=== PATIENT | male | born 1950 | race Caucasian/White ===

== ENCOUNTER 2020-03-15 09:04 | Outpatient (REF) | payer MEDICARE, SELFPAY | END 2020-03-15 09:05 | disposition home or self-care (01) | LOC: HO.BBR 09:04 | PROVIDERS: PCP Internal Medicine; Visit Provider Internal Medicine | DX: E83.110 Hereditary hemochromatosis (principal) | CPT/HCPCS: 99195 ==

== ENCOUNTER 2020-05-17 08:09 | Outpatient (REF) | payer MEDICARE, SELFPAY | END 2020-05-17 08:10 | disposition home or self-care (01) | LOC: HO.BBR 08:09 | PROVIDERS: Visit Provider Internal Medicine | DX: Z13.89 Encounter for screening for other disorder (principal) ==

== ENCOUNTER 2020-05-17 08:36 | Outpatient (REF) | payer SELFPAY ==
[2020-05-17 09:53] LABS: Cholesterol 137 mg/dL
== END 2020-05-17 08:37 | disposition home or self-care (01) ==
LOC: HO.LNC 08:36
PROVIDERS: Visit Provider Pathology Anatomic Pathology & Clinical Pathology
DX: Z76.89 Persons encountering health services in other specified circumstances (principal)
CPT/HCPCS: 82465

== ENCOUNTER 2020-07-19 08:59 | Outpatient (REF) | payer MEDICARE, SELFPAY | END 2020-07-19 09:00 | disposition home or self-care (01) | LOC: HO.BBR 08:59 | PROVIDERS: Visit Provider Internal Medicine | DX: Z13.89 Encounter for screening for other disorder (principal) ==

== ENCOUNTER 2020-08-12 15:39 | Outpatient (REF) | payer MEDICARE, SELFPAY ==
--- NOTE | ~2020-08-12 | US_ITS ---
EXAMINATION: US RETROPERITONEAL COMPLETE (RENAL) CLINICAL INFORMATION: Urinary retention. COMPARISON: None. TECHNIQUE: Real-time imaging of the kidneys and bladder. FINDINGS: RIGHT KIDNEY: 11.5 x 7.1 x 5.3 cm (SAG x AP x TRV). The kidney is normal in size, contour, and echogenicity. Renal cortical thickness is normal. No calculi or focal parenchymal lesions. No hydronephrosis. LEFT KIDNEY: 12.2 x 6.0 x 4.5 cm (SAG x AP x TRV). The kidney is normal in size, contour, and echogenicity. Renal cortical thickness is normal. No calculi or focal parenchymal lesions. No hydronephrosis. BLADDER: Well distended and normal. Bilateral ureteral jets are demonstrated. Prevoid bladder volume is 222 mL. Postvoid bladder volume is 41 mL. Prostate volume 46.3 mL. US/US retroperitoneal comp IMPRESSION: Unremarkable renal ultrasound. Small postvoid residual bladder volume. Moderate prostate enlargement.
== END 2020-08-12 15:40 | disposition home or self-care (01) ==
LOC: HO.US 15:39
PROVIDERS: Visit Provider Urology
DX: R33.9 Retention of urine, unspecified (principal)
CPT/HCPCS: 76770

== ENCOUNTER 2020-09-13 08:38 | Outpatient (REF) | payer MEDICARE, SELFPAY | END 2020-09-13 08:39 | disposition home or self-care (01) | LOC: HO.BBR 08:38 | PROVIDERS: Visit Provider Internal Medicine | DX: Z13.89 Encounter for screening for other disorder (principal) ==

== ENCOUNTER 2020-11-08 08:55 | Outpatient (REF) | payer MEDICARE, SELFPAY | END 2020-11-08 08:56 | disposition home or self-care (01) | LOC: HO.BBR 08:55 | PROVIDERS: Visit Provider Internal Medicine | DX: Z13.89 Encounter for screening for other disorder (principal) ==

== ENCOUNTER 2021-01-03 09:20 | Outpatient (REF) | payer MEDICARE, SELFPAY | END 2021-01-03 09:21 | disposition home or self-care (01) | LOC: HO.BBR 09:20 | PROVIDERS: Visit Provider Internal Medicine | DX: Z13.89 Encounter for screening for other disorder (principal) ==

== ENCOUNTER → 2021-03-26 15:42 | Outpatient (BNVA) | payer MEDICARE, SELFPAY | PROVIDERS: PCP Internal Medicine; Visit Provider Urology | DX: N40.1 Benign prostatic hyperplasia with lower urinary tract symptoms (principal); N13.8 Other obstructive and reflux uropathy; R97.20 Elevated prostate specific antigen [PSA] | CPT/HCPCS: Q3014 ==

== ENCOUNTER 2021-07-30 13:08 | Outpatient (REF) | payer MEDICARE, SELFPAY | END 2021-07-30 13:09 | disposition home or self-care (01) | LOC: HO.BBR 13:08 | PROVIDERS: Visit Provider Nurse Practitioner | DX: Z13.89 Encounter for screening for other disorder (principal) ==

== ENCOUNTER 2021-10-03 09:23 | Outpatient (REF) | payer MEDICARE, SELFPAY | END 2021-10-03 09:24 | disposition home or self-care (01) | LOC: HO.BBR 09:23 | PROVIDERS: Visit Provider Nurse Practitioner | DX: Z13.89 Encounter for screening for other disorder (principal) ==

== ENCOUNTER 2021-11-28 08:59 | Outpatient (REF) | payer MEDICARE, SELFPAY | END 2021-11-28 09:00 | disposition home or self-care (01) | LOC: HO.BBR 08:59 | PROVIDERS: Visit Provider Nurse Practitioner | DX: Z13.89 Encounter for screening for other disorder (principal) ==

== ENCOUNTER 2022-03-02 08:47 | Outpatient (REF) | payer MEDICARE, SELFPAY | END 2022-03-02 08:48 | disposition home or self-care (01) | LOC: HO.BBR 08:47 | PROVIDERS: Visit Provider Internal Medicine Gastroenterology | DX: Z13.89 Encounter for screening for other disorder (principal) ==

== ENCOUNTER → 2022-03-27 11:28 | Outpatient (BNVA) | payer MEDICARE, SELFPAY | PROVIDERS: PCP Internal Medicine; Visit Provider Urology | DX: N40.1 Benign prostatic hyperplasia with lower urinary tract symptoms (principal); N13.8 Other obstructive and reflux uropathy; R97.20 Elevated prostate specific antigen [PSA]; N52.9 Male erectile dysfunction, unspecified | CPT/HCPCS: 51798; 99212 ==

== ENCOUNTER 2022-06-02 08:07 | Outpatient (REF) | payer MEDICARE, SELFPAY | END 2022-06-02 08:08 | disposition home or self-care (01) | LOC: HO.BBR 08:07 | PROVIDERS: PCP Internal Medicine; Visit Provider Internal Medicine Gastroenterology | DX: Z13.89 Encounter for screening for other disorder (principal) ==

== ENCOUNTER → 2022-06-24 15:00 | Outpatient (BNVA) | payer MEDICARE, SELFPAY | PROVIDERS: PCP Internal Medicine; Visit Provider Urology | DX: E11.69 Type 2 diabetes mellitus with other specified complication (principal); N52.1 Erectile dysfunction due to diseases classified elsewhere; N40.1 Benign prostatic hyperplasia with lower urinary tract symptoms; N13.8 Other obstructive and reflux uropathy | CPT/HCPCS: Q3014 ==

== ENCOUNTER 2022-09-04 08:58 | Outpatient (REF) | payer MEDICARE, SELFPAY | END 2022-09-04 08:59 | disposition home or self-care (01) | LOC: HO.BBR 08:58 | PROVIDERS: Visit Provider Internal Medicine Gastroenterology | DX: Z13.89 Encounter for screening for other disorder (principal) ==

== ENCOUNTER → 2022-09-23 13:18 | Outpatient (BNVA) | payer MEDICARE, SELFPAY | PROVIDERS: PCP Internal Medicine; Visit Provider Urology | DX: R97.20 Elevated prostate specific antigen [PSA] (principal); N40.1 Benign prostatic hyperplasia with lower urinary tract symptoms; N13.8 Other obstructive and reflux uropathy; E11.69 Type 2 diabetes mellitus with other specified complication; N52.1 Erectile dysfunction due to diseases classified elsewhere | CPT/HCPCS: Q3014 ==

== ENCOUNTER 2022-12-08 09:10 | Outpatient (REF) | payer MEDICARE, SELFPAY | END 2022-12-08 09:11 | disposition home or self-care (01) | LOC: HO.BBR 09:10 | PROVIDERS: Visit Provider Internal Medicine Gastroenterology | DX: Z13.89 Encounter for screening for other disorder (principal) ==

== ENCOUNTER 2023-03-09 09:58 | Outpatient (REF) | payer MEDICARE, SELFPAY | END 2023-03-09 09:59 | disposition home or self-care (01) | LOC: HO.BBR 09:58 | PROVIDERS: PCP Internal Medicine; Visit Provider Internal Medicine Gastroenterology | DX: Z13.89 Encounter for screening for other disorder (principal) ==

== ENCOUNTER 2023-06-09 08:34 | Outpatient (REF) | payer MEDICARE, SELFPAY | END 2023-06-09 08:35 | disposition home or self-care (01) | LOC: HO.BBR 08:34 | PROVIDERS: PCP Internal Medicine; Visit Provider Internal Medicine Gastroenterology | DX: Z13.89 Encounter for screening for other disorder (principal) ==

== ENCOUNTER 2023-06-16 15:38 | Outpatient (AMB) | payer MEDICARE, SELFPAY ==
--- NOTE | 2023-06-16 15:50 | A.OFFVIS_ITS ---
Intake Intake Visit Reasons: 6M PVR/PSA(set) Intake Note: Patient presents today for a follow up with PVR medications : Allopurinol, Dutasteride,, Tadalafil Allergies to antibiotics: none Blood thinners: none Allergies No Known Allergies Allergy (Mild, Verified 06/16/23 16:04) NONE Medication List - Last Reconciled 06/16/23 by Larry Polo MD allopurinol 300 mg PO DAILY atorvastatin 10 mg PO DAILY dutasteride 0.5 mg PO DAILY 90 days indomethacin 25 mg PO DAILY lisinopril 20 mg PO DAILY metformin ER 2,000 mg PO DAILY sildenafil 100 mg PO ONCE PRN 30 days tadalafil 10 mg PO DAILY 90 days terazosin 5 mg PO BEDTIME 30 days HPI HPI Comments History of Present Illness Details ?Mr Valencia is a very pleasant male. He is a patient of Dr Felipe. He is seen for the following urologic conditions. - lower urinary tract symptoms - elevated PSA - erectile dysfunction Single therapy dutasteride Effective urinary patterns Will continue with daily tadalafil which has helped stabilize his bladder Add on demand sildenafil Prescriptions provided 6 month follow-up PSA Erectile dysfunction Current medication tadalafil 10 mg daily Has been somewhat effective Prior medications sildenafil on demand Lower Urinary Tract Symptoms: ?Understands there is potential during interval time frame. ? Current visit is for?further evaluation of, lower urinary tract symptoms, predominate obstructive symptoms .? Current treatment includes?medication dutasteride. ? Prostate Symptom Score?Moderate (9-19), Bother 3.? Symptoms include?incomplete emptying, urgency, weak stream, nocturia (>2), and are stable - Imaging 08/18 US PV 44, PVR 45cc ? Prior Prostate Score?unknown.? PSA?02/10 1.7, 02/11 2.1, 12/15 2.1, 01/16 4.0, 01/17 1.3, 08/18 1.4, 03/21 1.1, 06/23 1.3 ? Testing at next visit will include?Prostate Symptom Score ? Treatment plan?continue with current medications.? Office Procedures Post Void Residual Post Residual Void Post Void Residual (PVR): [id number] Void Residual by ultrasound Assessment & Plan Assessment & Plan (1) Erectile dysfunction associated with type 2 diabetes mellitus: Code(s): E11.69 - Type 2 diabetes mellitus with other specified complication; N52.1 - Erectile dysfunction due to diseases classified elsewhere (2) Elevated PSA: Code(s): R97.20 - Elevated prostate specific antigen [PSA] (3) BPH w urinary obs/LUTS: Code(s): N40.1 - Benign prostatic hyperplasia with lower urinary tract symptoms; N13.8 - Other obstructive and reflux uropathy Plan Six-month follow-up PSA Orders: Orders AMB Post Void Residual by ultrasound 06/16/23 R33.9 - Retention of urine, unspecified Prostate Specific Antigen 6 Months R97.20 - Elevated prostate specific antigen [PSA] Medications: Discontinued terazosin Discontinued Reason: Patient Completed Course 5 mg PO BEDTIME 30 days 90 caps 3RF sildenafil administer 60 minutes before intended activity Discontinued Reason: Patient Completed Course 100 mg PO ONCE 30 days PRN 30 tabs 1RF sexual activity N52.9 - Male erectile dysfunction, unspecified Patient Instructions: Imaging studies, laboratory and physical exam results were discussed and reviewed in detail. No major barriers to patient understanding were identified. An opportunity to ask questions regarding the treatment plan was provided. All questions were answered. The patient expressed understanding and agreement with the above treatment plan. The patient is aware they should contact our office by phone for worsening of their current condition or the appearance of new urologic symptoms. Compliance is encouraged with any medications and followup testing that is ordered. It is a privilege to participate in the urologic care of your patient. If you have any questions or concerns regarding treatment for the above conditions, or other urologic issues, please do not hesitate to contact me. The office telepho ne contact is [phone]. This note is constructed using voice recognition software. While every effort has been made to ensure accuracy orthopedic shoe maker errors may have been included. Yours sincerely, Dr Larry Polo MD, RAÚL [facility] - Urology Providers of Expert, Compassionate Care for the Genitourinary System Coding Level of Care Code Est Pt Level 4 (16768) Diagnoses Erectile dysfunction associated with type 2 diabetes mellitus E11.69; N52.1 Elevated PSA R97.20 BPH w urinary obs/LUTS N40.1; N13.8 CPT Codes Post Residual Void - PVR CPT Code: 80103-[id number] Void Residual by ultrasound ([id number])
== END 2023-06-16 16:30 | disposition home or self-care (01) ==
PROVIDERS: Visit Provider Urology
DX: E11.69 Type 2 diabetes mellitus with other specified complication (principal); N52.1 Erectile dysfunction due to diseases classified elsewhere; R97.20 Elevated prostate specific antigen [PSA]; N40.1 Benign prostatic hyperplasia with lower urinary tract symptoms; N13.8 Other obstructive and reflux uropathy
CPT/HCPCS: 99214

== ENCOUNTER → 2023-06-16 15:38 | Outpatient (BNVA) | payer MEDICARE, SELFPAY | PROVIDERS: Visit Provider Urology | DX: E11.69 Type 2 diabetes mellitus with other specified complication (principal); N52.1 Erectile dysfunction due to diseases classified elsewhere; R97.20 Elevated prostate specific antigen [PSA]; N40.1 Benign prostatic hyperplasia with lower urinary tract symptoms; N13.8 Other obstructive and reflux uropathy; R33.8 Other retention of urine | CPT/HCPCS: 51798; 99212 ==

== ENCOUNTER 2023-09-21 09:17 | Outpatient (REF) | payer MEDICARE, SELFPAY | END 2023-09-21 09:18 | disposition home or self-care (01) | LOC: HO.BBR 09:17 | PROVIDERS: PCP Internal Medicine; Visit Provider Internal Medicine Gastroenterology | DX: Z13.89 Encounter for screening for other disorder (principal) ==

== ENCOUNTER 2023-12-21 15:04 | Outpatient (AMB) | payer MEDICARE, SELFPAY ==
--- NOTE | 2023-12-21 15:05 | A.OFFVIS_ITS ---
Intake Visit Reasons: 6M PSA(set) Intake Note: Patient is Present for Telephone Follow Up PSA Urology Med: Dutasteride,Tadalafil Antibiotic Allergy:None Blood Thinner:None Outsole Scheduler Required: No Allergies No Known Allergies Allergy (Mild, Verified 12/21/23 15:07) NONE HPI Comments Details: ?Mr Valencia is a very pleasant male. He is a patient of Dr Felipe. He is seen for the following urologic conditions. - lower urinary tract symptoms - elevated PSA - erectile dysfunction Telemedicine Evaluation 15 min Consultation [facility] Video attempted Six-month follow-up PSA - 1.1 Single therapy dutasteride Effective urinary patterns Will continue with daily tadalafil which has helped stabilize his bladder On demand sildenafil Prescriptions provided Erectile dysfunction Current medication tadalafil 10 mg daily Has been somewhat effective Prior medications sildenafil on demand Lower Urinary Tract Symptoms: ?Understands there is potential during interval time frame. ? Current visit is for?further evaluation of, lower urinary tract symptoms, predominate obstructive symptoms .? Current treatment includes?medication dutasteride - M/W/F ? Prostate Symptom Score?Moderate (9-19), Bother 3.? Symptoms include?incomplete emptying, urgency, weak stream, nocturia (>2), and are stable - Imaging 08/18 US PV 44, PVR 45cc ? Prior Prostate Score?unknown.? PSA?02/10 1.7, 02/11 2.1, 12/15 2.1, 01/16 4.0, 01/17 1.3, 08/18 1.4, 03/21 1.1, 06/23 1.3, 11/21 1.1 ? Testing at next visit will include?Prostate Symptom Score ? Treatment plan?continue with current medications.? Review of Systems Const All systems reviewed & are unremarkable except as noted in HPI and below Reports no additional complaints Resp Reports no additional complaints GI Reports no additional complaints Reports as per HPI Musc Reports no additional complaints Physical Exam Telemedicine evaluation Appropriate responses Regular breathing rate and rhythm HEENT Head: Yes normal to inspection Ears: hearing grossly normal bilaterally Eyes General: appearance normal, both eyes and all related structures Neck Neck: Yes normal visual inspection Chest Chest palpation & inspection: normal inspection of the chest Resp Effort & Inspection: normal respiratory effort and able to speak in complete sentences Telehealth Telehealth Location of provider rendering services: practice address Location of patient: address on file Patient Identification confirmed using: Name, : Yes Telehealth method: video Patient verbally consented to treatment: Yes Patient verbally consented to billing insurance company: Yes Patient informed of any privacy concerns related to visit: Yes Assessment & Plan Assessment & Plan (1) Erectile dysfunction associated with type 2 diabetes mellitus: Code(s): E11.69 - Type 2 diabetes mellitus with other specified complication; N52.1 - Erectile dysfunction due to diseases classified elsewhere Category: Medical (2) BPH w urinary obs/LUTS: Code(s): N40.1 - Benign prostatic hyperplasia with lower urinary tract symptoms; N13.8 - Other obstructive and reflux uropathy Category: Medical Plan Six-month follow-up office Patient Instructions: Imaging studies, laboratory and physical exam results were discussed and reviewed in detail. No major barriers to patient understanding were identified. An opportunity to ask questions regarding the treatment plan was provided. All questions were answered. The patient expressed understanding and agreement with the above treatment plan. The patient is aware they should contact our office by phone for worsening of their current condition or the appearance of new urologic symptoms. Compliance is encouraged with any medications and followup testing that is ordered. It is a privilege to participate in the urologic care of your patient. If you have any questions or concerns regarding treatment for the above conditions, or other urologic issues, please do not hesitate to contact me. The office telephone contact is [phone]. This note is constructed using voice recognition software. While every effort has been made to ensure accuracy track production engineer errors may have been included. Yours sincerely, Dr Larry Polo MD, RAÚ[facility] - Urology Providers of Expert, Compassionate Care for the Genitourinary System Coding Level of Care Code Tele Est Pt Level 3 (89936) Diagnoses Erectile dysfunction associated with type 2 diabetes mellitus E11.69; N52.1 BPH w urinary obs/LUTS N40.1; N13.8
--- OUTSIDE RECORDS SUMMARY | 2023-12-21 15:06 | XMS_ITS | Continuity of Care Document ---
Author Organization [facility] [place] [address] [place] [address]- Care Team Providers Care Rd Project Manager Name Role Phone Vimal Gagnon MD Primary Care Physician Encounter 01/22/21 - 01/29/21 [facility] [address], [address] [place], [place] [address] Attending Physician: Vimal Gagnon MD Admitting Physician: Vimal Gagnon MD Referring Physician: Vimal Gagnon MD Allergies, Adverse Reactions, Alerts Substance Reaction Severity Status NKA Active Medications acetaminophen 325 mg oral tablet 650 mg, By Mouth, Every 6 hours, Refills 0, Maintenance, 03/29/19 12:11:09 EDT Start Date: 03/29/19 Status: Ordered Aspirin Tablet 325 mg, By Mouth, 2 times a day, Refills 0, Maintenance, 03/29/19 12:12:20 EDT Start Date: 03/29/19 Status: Ordered atorvastatin 10 mg oral tablet = 10 mg, By Mouth, Daily, 0 Refills, Maintenance, 03/29/19 12:11:19 EDT, Tablet Start Date: 03/29/19 Status: Ordered Colchicine = 0.6 mg, By Mouth, Daily, 0 Refills, Maintenance, 03/28/19 7:49:48 EDT Start Date: 03/28/19 Status: Ordered docusate sodium 100 mg oral capsule 100 mg, 1, capsule, By Mouth, 2 times a day, Refills 0, Maintenance, 03/29/19 12:11:26 EDT Start Date: 03/29/19 Status: Ordered metFORMIN 500 mg oral tablet 1 tablet = 500 mg, By Mouth, 4 times a day, 0 Refills, Maintenance, 03/28/19 7:49:08 EDT Start Date: 03/28/19 Status: Ordered Milk of Magnesia Liquid 30 mL, By Mouth, Daily, PRN Constipation, 0 Refills, Maintenance, 03/29/19 12:11:31 EDT, Suspension Start Date: 03/29/19 Status: Ordered MiraLax Powder 1 pack/packet = 17 Gm, By Mouth, Daily, 0 Refills, Maintenance, 03/29/19 12:11:36 EDT, Powder Start Date: 03/29/19 Status: Ordered pantoprazole 40 mg oral delayed release tablet = 40 mg, By Mouth, Daily, 0 Refills, Maintenance, 03/29/19 12:11:35 EDT, EC Tablet Start Date: 03/29/19 Status: Ordered senna 187 mg oral tablet 1 tablet = 8.6 mg, By Mouth, Daily at bedtime, 0 Refills, Maintenance, 03/29/19 12:11:40 EDT, Tablet Start Date: 03/29/19 Status: Ordered Terazosin 5 mg, By Mouth, Daily at bedtime, Refills 0, Maintenance, 03/28/19 7:50:28 EDT Start Date: 03/28/19 Status: Ordered tiZANidine 4 mg oral tablet 4 mg, By Mouth, 3 times a day, not to exceed 3 doses/day, # 21 tablet, Refills 0, Tot. Refills 0, Maintenance, 03/29/19 12:10:30 EDT, Print Requisition Start Date: 03/29/19 Stop Date: 04/05/19 Status: Ordered Vitamin B12 0, 0, 08/18/06 10:52:54, Print PAUL Number, Constant Indicator Start Date: 08/18/06 Status: Ordered Vitamin C 0, 0, 08/18/06 10:53:17, Print PAUL Number, Constant Indicator Start Date: 08/18/06 Status: Ordered
--- OUTSIDE RECORDS SUMMARY | 2023-12-21 15:06 | XMS_ITS | Continuity of Care Document ---
Author Organization [facility] Address [address] [place] [id number]- Care Team Providers Care Director Of Infection Prevention Name Role Phone Vimal Gagnon MD Primary Care Physician [place] [facility] [place] 05/18/19 - 05/18/[address] [address]- [place] Encounter Diagnosis Urinary retention(Final) - 05/18/19 Discharge Disposition: A-D/C Home Attending Physician: Wilfrido Kearney MD Admitting Physician: Wilfrido Kearney MD Referring Physician: Not on Staff, Referring MD Allergies, Adverse Reactions, Alerts Substance Reaction [...] Constant Indicator Start Date: 08/18/06 Status: Ordered Vital Signs Most recent to oldest [Reference Range]: 1 2 Oxygen Saturation [94-100 %] 98 % (05/18/19 4:43 AM) 98 % (05/18/19 2:21 AM) Pulse Rate [55-90 bpm] 115 bpm *H* (05/18/19 4:43 AM) 138 bpm *H* (05/18/19 2:21 AM) Blood Pressure [90-138/55-84 mm Hg] 125/ 80mm Hg (05/18/19 4:43 AM) 110/68mm Hg (05/18/19 2:21 AM) Respiratory Rate [16-30 br/min] 18 br/mi n (05/18/19 2:21 AM) Temperature [96.8-100.4 DegF] 97.9 DegF (05/18/19 4:43 AM) 97.9 DegF (05/18/19 2:21 AM) Mode of Delivery (Oxygen) Room air (05/18/19 4:43 AM) Room air (05/18/19 2:21 AM) Blood pressure sites Arm, right (05/18/19 4:43 AM) Arm, right (05/18/19 2:21 AM) Temperature Route Oral (05/18/19 4:43 AM) Oral (05/18/19 2:21 AM)
== END 2023-12-21 15:18 | disposition home or self-care (01) ==
LOC: HO.HUSH 15:04
PROVIDERS: PCP Internal Medicine; Visit Provider Urology
DX: E11.69 Type 2 diabetes mellitus with other specified complication (principal); N52.1 Erectile dysfunction due to diseases classified elsewhere; N40.1 Benign prostatic hyperplasia with lower urinary tract symptoms; N13.8 Other obstructive and reflux uropathy
CPT/HCPCS: 99213

== ENCOUNTER → 2023-12-21 15:04 | Outpatient (BNVA) | payer MEDICARE, SELFPAY | PROVIDERS: PCP Internal Medicine; Visit Provider Urology ==

== ENCOUNTER 2023-12-22 08:55 | Outpatient (REF) | payer MEDICARE, SELFPAY | END 2023-12-22 08:56 | disposition home or self-care (01) | LOC: HO.BBR 08:55 | PROVIDERS: PCP Internal Medicine; Visit Provider Internal Medicine Gastroenterology | DX: Z13.89 Encounter for screening for other disorder (principal) ==

== ENCOUNTER 2024-04-10 08:54 | Outpatient (REF) | payer MEDICARE, SELFPAY | END 2024-04-10 08:55 | disposition home or self-care (01) | LOC: HO.BBR 08:54 | PROVIDERS: PCP Internal Medicine; Visit Provider Internal Medicine Gastroenterology | DX: Z13.89 Encounter for screening for other disorder (principal) ==

== ENCOUNTER → 2024-06-23 11:40 | Outpatient (BNVA) | payer MEDICARE, SELFPAY | PROVIDERS: PCP Internal Medicine; Visit Provider Urology | DX: N40.1 Benign prostatic hyperplasia with lower urinary tract symptoms (principal); N13.8 Other obstructive and reflux uropathy; E11.69 Type 2 diabetes mellitus with other specified complication; N52.1 Erectile dysfunction due to diseases classified elsewhere | CPT/HCPCS: 51798; 81003; 99212 ==

== ENCOUNTER 2024-08-10 08:03 | Outpatient (REF) | payer MEDICARE, SELFPAY ==
--- OUTSIDE RECORDS SUMMARY | 2024-08-10 08:09 | XMS_ITS | Clinical Summary ---
Author Organization [facility] it Address [address] [place] [address] Care Team Providers Care Electronic Equipment Set Up Operator Name Role Phone Vimal Felipe MD Primary Care Provider [phone] Social History Tobacco Use Types Packs/Day Years Used Date Smoking Tobacco: Never Assessed Sex and Gender Information Value Date Recorded Sex Assigned at Not on file Legal Sex Male 11:28 AM EST Gender Identity Not on file Sexual Orientation Not on file Plan of Treatment Health Maintenance Due Date Last Done Comments DTaP,Tdap,and Td Vaccines (1 - Tdap) 1969 Pneumococcal Vaccine: 50+ Ye ars (1 of 2 - PCV) 1969 Zoster Vaccines (1 of 2) 2000 Abdominal Aortic Aneurysm (A AA) Screen 04/28/2022 Cholesterol Screening (Lipid Panel) 04/28/2022 Colorectal Cancer Screening: Colonoscopy 04/28/2022 Depression Screening 04/28/2022 Falls Risk Assessment 04/28/2022 Hepatitis C Screening 04/28/2022 Social Influencers of Health Screening 04/28/2022 COVID-19 Vaccine (1 - 2023-2 5 season) 2024 Influenza Vaccine (#1) 2024 RSV Immunization Patients 60 + Years Old (1 - 1-dose 75+ series) 2025 HIB Vaccines Aged Out No longer eligi ble based on patient's age to complete this topic HPV Vaccines Aged Out No longer eligi ble based on patient's age to complete this topic Hepatitis A Vaccines Aged Out No long er eligible based on patient's age to complete this topic Hepatitis B Vaccines Aged Out No long er eligible based on patient's age to complete this topic IPV Vaccines Aged Out No longer eligi ble based on patient's age to complete this topic MMR Vaccines Aged Out No longer eligi ble based on patient's age to complete this topic Meningococcal ACWY Vaccine Aged Out N o longer eligible based on patient's age to complete this topic Meningococcal B Vacine Aged Out No lo nger eligible based on patient's age to complete this topic RSV Immunization Patients Un cheikh 20 months Aged Out No longer eligible b ased on patient's age to complete this topic Varicella Vaccines Aged Out No longer eligible based on patient's age to complete this topic Care Teams Electronic Equipment Set Up Operator Relationship Specialty Start Date End Date Vimal Felipe MD PCP - General Agriculture Laborer 03/15/19
--- OUTSIDE RECORDS SUMMARY | 2024-08-10 08:09 | XMS_ITS | Clinical Summary ---
Author Organization [facility] Address [address] [place] [address] Care Team Providers Care Chef De Partie Name Role Phone Vimal Bob MD Primary Care Provider [phone] Allergies No known active allergies Medications acetaminophen (TYLENOL 8 HOUR) 650 MG 8 hr tablet Take 650 mg by mouth every 6 (six) hours Active ASCORBIC ACID CR PO Take by mouth Active aspirin 325 MG tablet Take 325 mg by mouth twice a day Active atorvastatin (LIPITOR) 10 MG tablet Take 10 mg by mouth 1 (one) time each day Active colchicine 0.6 MG tablet Take 0.6 mg by mouth 1 (one) time each day Active docusate sodium (COLACE) 100 MG capsule Take 100 mg by mouth 2 (two) times a day Active metFORMIN (GLUCOPHAGE) 500 MG tablet Take 500 mg by mouth 4 (four) times a day Active pantoprazole (PROTONIX) 40 MG EC tablet Take 40 mg by mouth 1 (one) time each day Active polyethylene glycol (GLYCOLAX) powder Take 17 g by mouth 1 (one) time each day Active senna (SENOKOT) 8.6 MG tablet Take 1 tablet by mouth 1 (one) time each day Active terazosin (HYTRIN) 5 MG capsule Take 5 mg by mouth every night Active tiZANidine (ZANAFLEX) 4 MG capsule Take 4 mg by mouth 3 (three) times a day Active Active Problems Problem Noted Date Diagnosed Date Chronic kidney disease, stage 3 (moderate) 07/04 Type 2 diabetes mellitus Retention of urine Hypertension Hyperlipidemia Gout Benign prostatic hyperplasia Family History Medical History Relation Comments Aortic stenosis Father Heart failure Father Lymphoma Mother Relation Status Comments Father Mother Social History Tobacco Use Types Packs/Day Years Used Date Smoking Tobacco: Never Sex and Gender Information Value Date Recorded Sex Assigned at Not on file Legal Sex Male 4:33 PM EST Gender Identity Not on file Sexual Orientation Not on file Plan of Treatment Health Maintenance Due Date Last Done Comments Pneumococcal Vaccine: 65+ Ye ars (1 of 2 - PCV) 1956 Colorectal Cancer Screening: Annual FOBT 08/08/1999 Colorectal Cancer Screening: Colonoscopy 08/08/1999 Colorectal Cancer Screening: Sigmoidoscopy 08/08/1999 Diabetes: Hemoglobin A1C 07/04/2019 Diabetes: Ophthalmology Exam 07/04/2019 Diabetes: Pedal Pulse Checked 07/04/2019 Diabetes: Sensory Foot Exam 07/04/2019 Diabetes: Visual Foot Exam 07/04/2019 Influenza Vaccine (#1) 2024 Hepatitis B Vaccine Aged Out No longe r eligible based on patient's age to complete this topic Insurance MEDICARE [facility] Care Teams Chef De Partie Relationship Specialty Start Date End Date Vimal Bob MD [address] PCP - General 04/04/19
--- OUTSIDE RECORDS SUMMARY | 2024-08-10 08:09 | XMS_ITS | Clinical Summary ---
Author Organization [facility] Address [address] [place] [address] Care Team Providers Care Shower Attendant Name Role Phone Vimal Bob MD Primary Care Provider [phone] Social History Tobacco Use Types Packs/Day Years Used Date Smoking Tobacco: Never Assessed Sex and Gender Information Value Date Recorded Sex Assigned at Male 03/15/2019 7:08 PM EDT Gender Identity Not on file Sexual Orientation Not on file Plan of Treatment Health Maintenance Due Date Last Done Comments Hepatitis C Screening 1950 COVID-19 Vaccine (#1) 02/07/1951 Depression Screening 1962 Preventative Health Evaluation 1968 DTap / Tdap / Td (1 - Tdap) 1969 Colon Cancer Screening (Colonoscopy) 08/08/1995 Shingrix-Zoster Vaccine (1 of 2) 2000 Fall Risk Assessment 08/08/2015 Pneumococcal Vaccine (1 of 1 - PCV) 08/08/2015 Influenza Vaccine (#1) 2024 RSV Adult > 60+ Yrs or Pregn ant (1 - 1-dose 75+ series) 2025 Hepatitis B Vaccines Aged Out No long er eligible based on patient's age to complete this topic RSV Ped < 20 months Aged Out No longe r eligible based on patient's age to complete this topic Care Teams Shower Attendant Relationship Specialty Start Date End Date Vimal Bob MD [address] [address] PCP - General Specialist Wound Care 03/15/19
== END 2024-08-10 08:04 | disposition home or self-care (01) ==
LOC: HO.BBR 08:03
PROVIDERS: PCP Internal Medicine; Visit Provider Internal Medicine Gastroenterology
DX: Z13.89 Encounter for screening for other disorder (principal)

== ENCOUNTER 2024-12-11 14:02 | Outpatient (REF) | payer MEDICARE, SELFPAY ==
--- OUTSIDE RECORDS SUMMARY | 2024-12-11 15:26 | XMS_ITS | Data Portability ---
Author Organization [facility], [facility] Address [address] [place] [address] Care Team Providers Care Gas Or Petroleum Operator Name Role Phone LYDIA ROBERTS Primary Care Provider Assessment No assessment recorded. Plan of Treatment Reminders Order Date Submit Date Provider Last Modified By Organization Details Last Modified Time Details Appointments RECHECK 2024 08:30A M Katina Pierce PA-C Not available Not available Not available RECHECK 2024 08:30A M Félix French PA-C Not available Not available Not available Lab None recorded . Referral None recorded . Procedures None recorded . Surgeries None recorded . Imaging XR, shoulder , 2 or more view - R shoulder 4 view rm 5 2024 025 [facility], [address], [place], [address], 10/10/2024 14:49:53 Medication Orders IBU 800 mg tablet 2024 025 [email or web address] [id number] [address] [place], [address], 06/23/2024 08:37:22 ibuprofe n 800 mg tablet 2023 024 [email or web address] [id number], [address] [place], [address], 12/21/2023 08:52:48 Patient TargetsNo targets recorded. Patient InstructionsNo instructions recorded. Reason for Referral None Reported. Results Created Date Observation Date Name Description Value Unit Range Abnormal Flag Note LastModifiedBy Organization Detail LastModifiedTime 01/28/20 24 04/04/2019 imagi ng/di agnos tic resul t No observ ation record ed. [email or web address] Not Available 12/31 19:21:45 01/28/20 24 04/04/2019 imagi ng/di agnos tic resul t No observ ation record ed. [email or web address] Not Available 12/31 19:21:52 01/28/20 24 04/04/2019 imagi ng/di agnos tic resul t No observ ation record ed. [email or web address] Not Available 12/31 19:21:53 09/30/19 25 09/29/2024 XR, shoul cheikh, 2 or more view http:/ [email or web address] ?Encry pted=s hAaTro YD8dLq bEUv6g %2BXZw aYqtaq 0bqfl% 2Fg9IQ a4ajBk vP9nXo QUaueC m3YtLR FvZlgJ JJ8mAn HZtai3 4l9869 AC0Kla n2AUaa nKiQtr MwF INTERFACE [facility] [address] [facility] [address], [place], [address], 09/29/2024 09:27:32 09/30/19 25 09/29/2024 XR, chaim cheikh, 2 or more view http:/ [email or web address] ?Encry pted=s hAaTro YD8dLq bEUv6g %2BXZw aYqtaq 0bqfl% 2Fg9IQ a4ajBk vP9nXo QUaueC m3YtLR FvZlgJ JJ8mAn HZtai3 9t0374 AC0Kla n2AUaa nKiQtr MwF INTERFACE [facility] [address], [place], [address], 09/29/2024 09:27:33 Result Notes Documentation Provider Name and Address Organization Details Recorded Time Xr, Shoulder, 2 Or More View : [email or web address] Encrypted=awGnSvnRT9vJrvM Uv6g%4CFUanPxqgn9isjg%2Fg 8ULo2vkJlmO5tEuNApjrIm4Ty MHCxHsrJYU0vIpHElub94g695 9UK7Pjmo0REmmeWoFsjCoW Not Available [facility] 09/29/2024 09:27: 32 Xr, Shoulder, 2 Or More View : [email or web address] Encrypted=thPuRhxCX5uWrhM Uv6g%7AIWvgYtesq7qcsq%2Fg 8JSr1anKzxF6hBuKEndmJu6Fi IRPeJsmMQJ6bFdEAmpe95y969 4ES7Ivji0WYgbfXlFzwYoA Not Available [facility] 09/29/2024 09:27: 34 Problems Name Problem SNOMED Code Status Onset Date Resolution Date Notes Provider Name and Address Organization Details Recorded Time Localized, primary osteoarthr itis of the ankle and/or foot 057904002 Active 2024 Katina Pierce PA-C [address] [facility], [place], [address] , [facility] 5 08:36:38 Pain of right shoulder joint 9588376036627 9100 Active 2020 Status : 'A'; Not Available [facility] 4 11:57:57 Problem Notes None recorded. Procedures Surgical History Date Name Laterality Status Provider Name and Address Organization Details Recorded Time 5 Sports Shoulder completed Nova Diamond MD [address], [place], [address], [facility] 09/29/2024 10:13:09 5 Ankle Joint Asp & Inj, L/R Celestone 2cc completed Katina Pierce PA-C [address], [place], [address], [facility] 09/18/2024 08:41:11 5 Ankle Joint Asp & Inj, L/R Celestone 2cc completed Katina Pierce PA-C [address], [place], [address], [facility] 06/21/2024 12:59:33 4 Ankle Kenalog 1cc Injection, L/R completed Verna Mendoza PA-C [address], [place], [address], [facility] 03/23/2024 09:32:27 4 Ankle Joint Asp & Inj, L/R Celestone 2cc completed Katina Pierce PA-C [address], [place], [address], [facility] 12/20/2023 07:28:52 4 Ankle Kenalog 1cc Injection, L/R completed Katina Pierce PA-C [address], [place], [address], [facility] 09/21/2023 09:35:43 9 Knee Surgery completed [place] Amelie Galindo or [facility] 06/23/2024 08:26:36 1 Hip Surgery completed [facility] [facility] 06/23/2024 08:26:36 8 Spine Surgery completed [place] Amelie Blank and [facility] 06/23/2024 08:26:36 Imaging Results None recorded. Procedure Notes None recorded. Medical Equipment None Reported. Allergies No known drug allergies Medications Name Sig Start Date Stop Date Status Note LastModified by Organization Details LastModified Time atorvastati n 10 mg tablet TAKE 1 TABLET BY MOUTH EVERYDAY AT BEDTIME active Not Available Not Available No t Available ibuprofen 800 mg tablet TAKE 1 TABLET BY MOUTH THREE TIMES A DAY NEEDED 2024 active Not Available Not Available Not Avai lable lisinopril 20 mg tablet TAKE 1 TABLET BY MOUTH EVERY DAY active Not Available Not Available No t Available allopurinol 100 mg tablet TAKE 1 TABLET BY MOUTH EVERY DAY FOR 30 DAYS 03/21 completed Not Available Not Available Not Available pseudoephed rine-gunormafe nesin ER 80-700 mg tablet,exte nded release 1 tablet every 4-6 hours as needed for pain 1 tablet 1/2 hour prior to exercises .DO NOT DRIVE WHILE ON THIS MEDICATIO N 12/14 completed Statu s: 'Curr ent'; Not Available Not Available Not Available indomethaci n 25 mg capsule TAKE 1 CAPSULE BY MOUTH EVERY DAY *INS NOT COVERED* active Not Available Not Available No t Available allopurinol 300 mg tablet TAKE 1 TABLET BY MOUTH EVERY DAY FOR 30 DAYS active Not Available Not Available No t Available colchicine 0.6 mg tablet TAKE 1 TABLET BY MOUTH TWICE A DAY 12/14 completed Not Available Not Available Not Available metformin ER 500 mg tablet,exte nded release 24 hr TAKE 4 TABLETS BY MOUTH EVERY DAY active Not Available Not Available No t Available amoxicillin 875 mg-potassiu m clavulanate 125 mg tablet 03/20 completed Not Available Not Available Not Available dutasteride 0.5 mg capsule TAKE 1 CAPSULE BY MOUTH EVERY DAY ON WEDNESDAY, WEDNESDAY , WEDNESDAY active Not Available Not Available No t Available tadalafil 10 mg tablet TAKE ONE TABLET BY MOUTH EVERY DAY active Not Available Not Available No t Available Mounjaro 7.5 mg/0.5 mL subcutaneou s pen injector active Not Available Not Available Not Available Mounjaro 5 mg/0.5 mL subcutaneou s pen injector 09/29 completed Not Available Not Available Not Available Mounjaro 2.5 mg/0.5 mL subcutaneou s pen injector INJECT 2.5 MG UNDER THE SKIN ONCE A WEEK 12/14 completed Not Available Not Available Not Available Vitals Date Recorded Body height Body mass index (BMI) Body weight Provider Name and Address Organization Details Last Updated DateTime 09/19/2024 177.8 cm 30.1 kg/m2 77168.4 g [place] [facility] [place] [facility] 09/19/2024 08:36:34 Date Recorded Body height Body mass index (BMI) Body weight Provider Name and Address Organization Details Last Updated DateTime 09/29/2024 177.8 cm 30.1 kg/m2 64358.4 g SHONA RUSTY [facility] 09/29/2024 09:19:39 Date Recorded Body height Body mass index (BMI) Body weight Provider Name and Address Organization Details Last Updated DateTime 03/23/2024 177.8 cm 30.1 kg/m2 02132.4 g CYNDI BLANCO [facility] 03/23/2024 08:49:11 Social History None recorded. Functional Status None recorded. Mental Status None recorded. Family History Nothing Reported. Medical History Condition Response Arthritis Y Past Encounters Encounter ID Performer Location Encounter Start Date Encounter Closed Date Diagnosis/Indication Diagnosis SNOMED-CT Code Diagnosis ICD10 Code Diagnosis Note [id number] Katina Pierce PA-C [facility] [address] [place] [address] 09/21/2023 08:20:02 10/12/2023 11:20:59 Localized, primary osteoarthritis of the ankle and/or foot 308448401 M19.706 [id number] Katina Pierce PA-C [facility] [address] [place] [address] 12/21/2023 08:23:02 01/07/2024 12:40:25 Localized, primary osteoarthritis of the ankle and/or foot 543277261 M19.736 [id number] Verna Mendoza PA-C [facility] [address] [place] [address] 03/23/2024 08:40:05 04/10/2024 16:34:28 Ankle pain 489268864 M25.261 [id number] Katina Pierce PA-C [facility] - [facility] [address] [place] [address] 06/23/2024 08:11:34 07/04/2024 13:59:53 Localized, primary osteoarthritis of the ankle and/or foot 525435690 M19.010 [id number] Katina Pierce PA-C [facility] [address] [place] [address] 09/19/2024 08:19:47 09/26/2024 15:48:21 Localized, primary osteoarthritis of the ankle and/or foot 110358479 M19.475 [id number] MD [facility] [address] [place] [address] [place] [address] 09/29/2024 09:08:22 10/10/2024 14:49:53 Pain of right shoulder joint 0485689464 [id number] M25.511 Health Concerns Section Related Observation LastModified by Organization Detai ls LastModified Time None Recorded Concern Status LastModified by Organization Details LastModified Time None Recorded Advance Directives Directive None Recorded Payers Insurance Date Sequence Insurance Name Policy Number Policy Tripp Covered Member ID Tripp Member ID Guarantor Name 10/10/2024 2 [place] [id number] Alberto Valencia [id number] Alberto Valencia 09/25/2024 2 AARP (MEDICARE SUPPLEMENT) Alberto Valencia [id number] Alberto Valencia 09/28/2024 1 [place] Alberto Valencia [id number] Alberto Valencia 03/20/2024 2 [employer] (MEDICARE SUPPLEMENT) Alberto Valencia Notes Date Note Type Note Provider Name and Address Organization Details Recorded Time 12/21/2023 text/html I am seeing this patient under the supervision of Dr. Mancia, who was available but who did not see the patient.HPI: Patient is a 73-year-old male presenting today in regards to left ankle pain. He was seen by myself on 09/21/23. Diagnosed with ankle arthritis. He was given a cortisone injection. This helped somewhat. Presents today for recheck and requests repeat cortisone injection. He denies any trauma. Denies any fevers, chills, or paresthesias. PFMSH, Meds and ROS reviewed, updated and signed by me, and is located in the patient's chart.PHYSICAL EXAMINATION: The patient is well appearing and in no apparent distress. Alert and oriented x 3. Examination of his left ankle reveals slight valgus alignment. Mild edema no evidence of erythema or warmth. Tender to palpation over the anterior joint line. Limited ankle range of motion. Calf soft, nontender. Sensation intact light touch in the left lower extremity.IMPRESSIO N: Left ankle arthritisPLAN: Discussed the findings and situation with the patient today. We discussed options for both conservative and surgical intervention. Discussed conservative treatment including cortisone injection and bracing. Discussed surgery to include total ankle arthroplasty. He is interested in an injection today. Follow-up in 4-6 months if warranted for repeat cortisone injection. Call with questions or concerns. Katina Pierce PA-C [address] [facility] [address], [place], [address], [facility] [place] [facility] 12/21/2023 08:53:02 03/23/2024 text/html I am seeing this patient under the supervision of Dr. Mancia who was available but who did not see the patient.HPI: Patient is a 73-year-old male presenting today in regards to left ankle pain. He was seen by Katina TALLEY on 12/21/23. Diagnosed with ankle arthritis back in August 2023. He has received 2 injections so far both of which have helped for several months. We discussed the option of a total ankle arthroplasty in the past but has decided to hold off for now. He anticipates needing shoulder surgery. He is interested in discussing the total ankle today. Previous x-rays were performed at [facility] through [facility] back in August 2023. Presents today for recheck and requests repeat cortisone injection. He denies any trauma. Denies any fevers, chills, or paresthesias. PFMS, Meds and ROS reviewed, updated and signed by me, and is located in the patient's chart.PHYSICAL EXAMINATION: The patient is well appearing and in no apparent distress. Alert and oriented x 3. Examination of his left ankle reveals slight valgus alignment. Mild edema no evidence of erythema or warmth. Tender to palpation over the anterior joint line. Limited ankle range of motion. Calf soft, nontender. Sensation intact light touch in the left lower extremity.IMPRESSIO N: Left ankle end stage valgus arthritisPLAN: Discussed the findings and situation with the patient today. We discussed options for both conservative and surgical intervention. Discussed conservative treatment including cortisone injection and bracing. Discussed surgery to include total ankle arthroplasty. He is interested in an injection today. Follow-up in 3-4 months if warranted for repeat cortisone injection. Call with questions or concerns. Verna Mendoza PA-C [address], [place], [address], [facility] 03/23/2024 09:32:57 06/23/2024 text/html I am seeing this patient under the supervision of Dr. Mancia, who was available but who did not see the patient.HPI: Patient is a 73-year-old male presenting today in regards to left ankle pain. He was seen by Verna Mendoza on 03/23/24. Diagnosed with ankle arthritis. He was given a cortisone injection. This helped somewhat. Presents today for recheck and requests repeat cortisone injection. He denies any trauma. Denies any fevers, chills, or paresthesias. PFMSH, Meds and ROS reviewed, updated and signed by me, and is located in the patient's chart.PHYSICAL EXAMINATION: The patient is well appearing and in no apparent distress. Alert and oriented x 3. Examination of his left ankle reveals slight valgus alignment. Mild edema no evidence of erythema or warmth. Tender to palpation over the anterior joint line. Limited ankle range of motion. Calf soft, nontender. Sensation intact light touch in the left lower extremity.IMPRESSIO N: Left ankle arthritisPLAN: Discussed the findings and situation with the patient today. We discussed options for both conservative and surgical intervention. Discussed conservative treatment including cortisone injection and bracing. Discussed surgery to include total ankle arthroplasty. He is interested in an injection today. Follow-up in 4-6 months if warranted for repeat cortisone injection. Call with questions or concerns. Katina Pierce PA-C [address], [place], [address], [facility] 06/23/2024 08:37:33 09/19/2024 text/html I am seeing this patient under the supervision of Dr. Mancia, who was available but who did not see the patient.HPI: Patient is a 73-year-old male presenting today in regards to left ankle pain. He was seen by myself on 06/23/24. Diagnosed with ankle arthritis. He was given a cortisone injection. This helped somewhat. Presents today for recheck and requests repeat cortisone injection. He denies any trauma. Denies any fevers, chills, or paresthesias. PFMSH, Meds and ROS reviewed, updated and signed by me, and is located in the patient's chart.PHYSICAL EXAMINATION: The patient is well appearing and in no apparent distress. Alert and oriented x 3. Examination of his left ankle reveals slight valgus alignment. Mild edema no evidence of erythema or warmth. Tender to palpation over the anterior joint line. Limited ankle range of motion. Calf soft, nontender. Sensation intact light touch in the left lower extremity.IMPRESSIO N: Left ankle arthritisPLAN: Discussed the findings and situation with the patient today. We discussed options for both conservative and surgical intervention. Discussed conservative treatment including cortisone injection and bracing. Discussed surgery to include total ankle arthroplasty. He is interested in an injection today. Follow-up in 4-6 months if warranted for repeat cortisone injection. Call with questions or concerns. Katina Pierce PA-C [address] [place] [address] [address], [place], [address], [facility] 09/19/2024 09:04:04 09/29/2024 text/html Issue: Right glenohumeral arthritis Interval History: This is a 74 year old euzzg-kzwa-cctcwpep gentleman with chronic progressive right shoulder pain related to glenohumeral arthritis. No specific injury that he can recall. Seen for this back in 2020 and received a cortisone injection at that time which helped significantly. Pain has come back over time. Takes ibuprofen for this as well as ankle arthritis, which does provide some relief. Over time, however, has noted increasing pain, decreasing range of motion which are now interfering fairing with some of his desired activities, including golf and swimming. Here today to discuss more definitive options for management. Past family, medical, social history and review of systems have been reviewed and updated on the medical history sheet saved to the patient's chart. A 12-point review of systems is negative x12 except as noted above and/or on the medical history sheet. Examination: Pleasant 74-year-old gentleman in no acute distress. 5 feet 10 inches, 210 pounds. On exam of the right upper extremity, skin over the shoulder is intact. No effusion, no gross atrophy. 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 No point tenderness to palpation about the shoulder. Active and passive forward elevation 120, external rotation 45, internal rotation back pocket. 5/5 strength with internal rotation with some pain, 5 -/5 with external rotation, 5/5 with empty can. Negative Yergason's. Sensation intact in an axillary distribution. Fires EPL, FPL and intrinsics. Hand is warm and well-perfused. Imagin views of the Right shoulder ordered and obtained at [facility] today were reviewed during the visit. These demonstrate severe glenohumeral arthritis with complete loss of glenohumeral joint space. Large inferior humeral neck osteophyte. Posterior subluxation of the humeral head, at least moderate glenoid retroversion, suggestion of fairly significant posterior glenoid wear versus anterior glenoid calcification/osteo phyte. Moderate AC arthrosis. Type II acromion. No proximal migration of humeral head. Impression: 74-year-old yjswi-lfoh-evwdazkz gentleman with chronic progressive right shoulder pain related to glenohumeral arthritis. Plan: Findings and options for management reviewed with the patient. Discussed that definitive management would entail a shoulder replacement operation, specifically reverse total shoulder arthroplasty. Technical details, risks and benefits, typical downtime and recovery from surgery reviewed. Short of surgery, cortisone injections can sometimes improve symptoms of pain, though typically do little to improve mobility issues. Will go forward with cortisone injection today, he will continue to consider the possibility of replacement down the line. Follow-up in 3 months for recheck. [employer] speech recognition tube bender hand software was used to create portions of this document. An attempt at proofreading has been made to minimize errors. Please call for corrections. Services Nova Diamond MD [address] [place], [place] [address], [place], [address], [facility] 09/29/2024 10:13:24
--- OUTSIDE RECORDS SUMMARY | 2024-12-11 15:26 | XMS_ITS | Clinical Summary ---
Author Organization [facility] Address [address] [place] [address] Care Team Providers Care Lace Finisher Name Role Phone Vimal Bob MD Primary Care Provider [phone] Social History Tobacco Use Types Packs/Day Years [...] 1 - PCV) 08/08/2015 Influenza Vaccine (#1) 2025 RSV Adult > 60+ Yrs or Pregn ant (1 - 1-dose 75+ series) 2025 Hepatitis B Vaccines Aged Out No long er eligible based on patient's age to complete this topic RSV Ped < 20 months Aged Out No longe r eligible based on patient's age to complete this topic Care Teams Lace Finisher Relationship Specialty Start Date End Date Vimal Bob MD [address] [address] PCP - General Audit Spec 03/15/19
--- OUTSIDE RECORDS SUMMARY | 2024-12-11 15:26 | XMS_ITS | Clinical Summary ---
Author Organization [facility] Address [address] [place] [address] Care Team Providers Care Sew Out Operator Name Role Phone Vimal Bob MD Primary Care Provider [phone] Allergies No known active allergies Medications acetaminophen [...] Due Date Last Done Comments Pneumococcal Vaccine: 50+ Ye ars (1 of 2 - PCV) 1969 Colorectal Cancer Screening: Annual FOBT 08/08/1999 Colorectal Cancer Screening: Colonoscopy 08/08/1999 Colorectal Cancer Screening: Sigmoidoscopy 08/08/1999 Diabetes: Hemoglobin A1C 07/04/2019 Diabetes: Ophthalmology Exam 07/04/2019 Diabetes: Pedal Pulse Checked 07/04/2019 Diabetes: Sensory Foot Exam 07/04/2019 Diabetes: Visual Foot Exam 07/04/2019 Influenza Vaccine (#1) 2025 Hepatitis B Vaccine Aged Out No longe r eligible based on patient's age to complete this topic Insurance Medicare [facility] Care Teams Sew Out Operator Relationship Specialty Start Date End Date Vimal Bob MD [address] PCP - General 04/04/19
--- OUTSIDE RECORDS SUMMARY | 2024-12-11 15:26 | XMS_ITS | Clinical Summary ---
Author Organization [facility] it Address [address] [place] [address] Care Team Providers Care Passenger Tire Inspector Name Role Phone Vimal Felipe MD Primary Care Provider [phone] Social History Tobacco Use Types Packs/Day Years [...] Influencers of Health Screening 04/28/2022 COVID-19 Vaccine ( - 2023-2 5 season) 2024 Influenza Vaccine (#1) 2025 RSV Immunization Adult Patie nts (1 - 1-dose 75+ series) 2025 HIB [...] age to complete this topic Meningococcal B Vaccine Aged Out No l onger eligible based on patient's age to complete this topic RSV Immunization Patients Un cheikh 20 months Aged Out No longer eligible b ased on patient's age to complete this topic Varicella Vaccines Aged Out No longer eligible based on patient's age to complete this topic Care Teams Passenger Tire Inspector Relationship Specialty Start Date End Date Vimal Felipe MD PCP - General Credentialer 03/15/19
== END 2024-12-11 14:03 | disposition home or self-care (01) ==
LOC: HO.BBR 14:02
PROVIDERS: PCP Internal Medicine; Visit Provider Internal Medicine Gastroenterology
DX: Z13.89 Encounter for screening for other disorder (principal)

== ENCOUNTER 2024-12-26 09:59 | Outpatient (AMB) | payer MEDICARE, SELFPAY ==
--- NOTE | 2024-12-26 09:59 | MHC.OFFVIS ---
Intake Visit Reasons: 6 month follow up Intake Note: Patient is present for 6 mo follow TELEHEALTH for ED and BPH Urology Medication:TADALAFIL,ALLOPURINOL, SILDENAFIL Antibiotic Allergy:NONE Blood Thinner:NONE Seasonal Greenery Bundler Required: No Accompanied by: Self / Same As Patient Allergies No Known Allergies Allergy (Mild, Verified 12/26/24 10:00) NONE HPI Comments Details: ?Mr Valencia is a very pleasant male. He is a patient of Dr Felipe. He is seen for the following urologic conditions. - lower urinary tract symptoms - elevated PSA - erectile dysfunction Telemedicine Evaluation 15 min Consultation [facility] Video Six-month follow-up Single therapy dutasteride - M/W/F Effective urinary patterns 10 mg daily tadalafil has helped stabilization On demand sildenafil Prescriptions provided 12 month follow-up Erectile dysfunction Current medication tadalafil 10 mg daily Has been somewhat effective Prior medications sildenafil on demand Lower Urinary Tract Symptoms: ?Understands there is potential during interval time frame. ? Current visit is for?further evaluation of, lower urinary tract symptoms, predominate obstructive symptoms .? Current treatment includes?medication dutasteride - M/W/F ? Prostate Symptom Score?Moderate (9-19), Bother 3.? Symptoms include?incomplete emptying, urgency, weak stream, nocturia (>2), and are stable - Imaging 08/18 US PV 44, PVR 45cc ? Prior Prostate Score?unknown.? PSA?02/10 1.7, 02/11 2.1, 12/15 2.1, 01/16 4.0, 01/17 1.3, 08/18 1.4, 03/21 1.1, 06/23 1.3, 11/21 1.1, 12/22 1.2 ? Testing at next visit will include?Prostate Symptom Score ? Treatment plan?continue with current medications.? Review of Systems Const All systems reviewed & are unremarkable except as noted in HPI and below Reports no additional complaints Resp Reports no additional complaints GI Reports no additional complaints Reports as per HPI Musc Reports no additional complaints Physical Exam Telemedicine evaluation Appropriate responses Regular breathing rate and rhythm HEENT Head: Yes normal to inspection Ears: hearing grossly normal bilaterally Eyes General: appearance normal, both eyes and all related structures Neck Neck: Yes normal visual inspection Chest Chest palpation & inspection: normal inspection of the chest Resp Effort & Inspection: normal respiratory effort and able to speak in complete sentences Telehealth Telehealth Telehealth Platform: [facility] Location of provider rendering services: practice address Location of patient: address on file Patient Identification confirmed using: Name, : Yes Telehealth method: video Patient verbally consented to treatment: Yes Patient verbally consented to billing insurance company: Yes Patient informed of any privacy concerns related to visit: Yes Minutes spent on Phone/Video with Pt.: 15 Assessment & Plan Assessment & Plan (1) Elevated PSA: Code(s): R97.20 - Elevated prostate specific antigen [PSA] Category: Medical (2) Erectile dysfunction associated with type 2 diabetes mellitus: Code(s): E11.69 - Type 2 diabetes mellitus with other specified complication; N52.1 - Erectile dysfunction due to diseases classified elsewhere Category: Medical (3) BPH w urinary obs/LUTS: Code(s): N40.1 - Benign prostatic hyperplasia with lower urinary tract symptoms; N13.8 - Other obstructive and reflux uropathy Category: Medical Plan 12 month follow-up Patient Instructions: This note is constructed using voice recognition software. While every effort has been made to ensure accuracy test lead errors may have been included. Imaging studies, laboratory and physical exam results were discussed and reviewed in detail. No major barriers to patient understanding were identified. An opportunity to ask questions regarding the treatment plan was provided. All questions were answered. The patient expressed understanding and agreement with the above treatment plan. The patient is aware they should contact our office by phone for worsening of their current condition or the appearance of new urologic symptoms. Compliance is encouraged with any medications and followup testing that is ordered. It is a privilege to participate in the urologic care of your patient. If you have any questions or concerns regarding treatment for the above conditions, or other urologic issues, please do not hesitate to contact me. The office telephone contact is [phone]. Sincerely, Dr Larry Polo MD, RAÚL [facility] - Urology Compassionate Specialist Care for the Genitourinary System Coding Level of Care Code Tele Est Pt Level 3 (32184) Complex EM visit Add On G2211 Diagnoses Elevated PSA R97.20 Erectile dysfunction associated with type 2 diabetes mellitus E11.69; N52.1 BPH w urinary obs/LUTS N40.1; N13.8
--- OUTSIDE RECORDS SUMMARY | 2024-12-26 10:42 | XMS_ITS | Clinical Summary ---
Author Organization [facility] it Address [address] [place] [address] Care Team Providers Care Hog Pusher Name Role Phone Vimal Felipe MD Primary Care Provider [phone] Social History Tobacco Use Types Packs/Day Years [...] Panel) 04/28/2022 Colorectal Cancer Screening: Colonoscopy 04/28/2022 Falls Risk Assessment 04/28/2022 Hepatitis C Screening 04/28/2022 Social Influencers of Health Screening 04/28/2022 COVID-19 Vaccine ( - 2023-2 5 season) 2024 Depression Screening 05/31/2024 Influenza Vaccine (#1) 2025 RSV Immunization Adult [...] on patient's age to complete this topic Procedures Procedure Name Priority Date/Time Associated Diagnosis Comments EXTERNAL CLINICAL LAB 12/12/2024 from Last 3 Months Results * External clinical lab (12/12/2024) us Provider [facility] BLOOD ORDERABLES Fin al Result from Last 3 Months Care Teams Hog Pusher Relationship Specialty Start Date End Date Vimal Felipe MD PCP - General Lead Inspector 03/15/19
--- OUTSIDE RECORDS SUMMARY | 2024-12-26 10:42 | XMS_ITS | Clinical Summary ---
Author Organization [facility] Address [address] [place] [address] Care Team Providers Care Mica Plate Layer Name Role Phone Vimal Bob MD Primary Care Provider [phone] Social History Tobacco Use Types Packs/Day Years [...] age to complete this topic Care Teams Mica Plate Layer Relationship Specialty Start Date End Date Vimal Bob MD [address] [address] PCP - General Gmat Tutor 03/15/19
--- OUTSIDE RECORDS SUMMARY | 2024-12-26 10:42 | XMS_ITS | Data Portability ---
Author Organization [facility] Address [address] [place] [address] Care Team Providers Care Motorcycle Repair Shop Supervisor Name Role Phone LYDIA ROBERTS Primary Care Provider [phone] Assessment No assessment recorded. Plan of Treatment [...] shoulder 4 view rm 5 2024 025 [facility], [address], [place], [address], 10/10/2024 14:49:53 Medication Orders IBU 800 mg tablet 2024 025 [email or web address] [id number] [address] [place], [address], 06/23/2024 08:37:22 ibuprofe n 800 mg tablet 2023 024 [email or web address] [id number], [address] [place], [address], 12/21/2023 08:52:48 Patient TargetsNo targets recorded. Patient [...] a4ajBk vP9nXo QUaueC m3YtLR FvZlgJ JJ8mAn HZtai3 0a9648 AC0Kla n2AUaa nKiQtr MwF INTERFACE [facility] [address] [facility] [address], [place], [address], 09/29/2024 09:27:32 09/30/19 25 09/29/2024 XR, chaim cheikh, 2 or more view http:/ [email or web address] ?Encry pted=s hAaTro YD8dLq bEUv6g %2BXZw aYqtaq 0bqfl% 2Fg9IQ a4ajBk vP9nXo QUaueC m3YtLR FvZlgJ JJ8mAn HZtai3 5c6903 AC0Kla n2AUaa nKiQtr MwF INTERFACE [facility] [address], [place], [address], 09/29/2024 09:27:33 Result Notes Documentation Provider Name and Address Organization Details Recorded Time Xr, Shoulder, 2 Or More View : [email or web address]? Encrypted=zeZoLgyGM3jPfkC Uv6g%7DEAbpAimbv5kygh%2Fg 2PSn4nnIfsY3aTdMTmdmJn0Tp EEXwCmpMZV1mKgONrjg91w517 0UY9Ylzk4AGxftEsSubOlG Not Available [facility] 09/29/2024 09:27: 32 Xr, Shoulder, 2 Or More View : [email or web address]? Encrypted=jxNjQznRZ6oRlhG Uv6g%0XBJdtYfqhq9kehz%2Fg 2AAd7skZynR8uXrZNcfpCp9Ph DWWwCpnYZP3pPdVLfqz54j626 6WT9Nysv0GDswxFoFbvJkL Not Available [facility] 09/29/2024 09:27: 34 Problems Name Problem SNOMED Code Status Onset Date Resolution Date Notes Provider Name and Address Organization Details Recorded Time Pain of right shoulder joint 5422320938651 9100 Active 2020 Status : 'A'; Not Available [facility] 4 11:57:57 Localized, primary osteoarthr itis of the ankle and/or foot 056534864 Active 2024 Katina Pierce PA-C [address] [facility], [facility] [place], [address] , [facility] 5 08:36:38 Problem Notes None recorded. Procedures Surgical History Date Name Laterality Status Provider Name and Address Organization Details Recorded Time 5 Sports Shoulder completed Nova Diamond MD [address], [place], [address], [facility] 09/29/2024 10:13:09 5 Ankle Joint Asp & Inj, L/R Celestone 2cc completed Katina Pierce PA-C [address], [place], [address], [facility] 09/18/2024 08:41:11 5 Ankle Joint Asp & Inj, L/R Celestone 2cc completed Katina Pierce PA-C [address], [place], [address], [facility] 06/21/2024 12:59:33 4 Ankle Kenalog 1cc Injection, L/R completed Verna Mendoza PA-C [address], [place], [address], [facility] 03/23/2024 09:32:27 4 Ankle Joint Asp & Inj, L/R Celestone 2cc completed Katina Pierce PA-C [address], [place], [address], [facility] 12/20/2023 07:28:52 4 Ankle Kenalog 1cc Injection, L/R completed Katina Pierce PA-C [address], [place], [address], [facility] 09/21/2023 09:35:43 9 Knee Surgery [place] Amelie Galindo [place] [facility] 06/23/2024 08:26:36 1 Hip Surgery completed [place] [facility] 06/23/2024 08:26:36 8 Spine Surgery [place] Amelie Blank and [facility] 06/23/2024 [...] Updated DateTime 09/19/2024 177.8 cm 30.1 kg/m2 66828.4 g [place] [facility] [place] [facility] 09/19/2024 08:36:34 Date Recorded Body height Body mass index (BMI) Body weight Provider Name and Address Organization Details Last Updated DateTime 09/29/2024 177.8 cm 30.1 kg/m2 36728.4 g SHONA RUSTY [facility] 09/29/2024 09:19:39 Date Recorded Body height Body mass index (BMI) Body weight Provider Name and Address Organization Details Last Updated DateTime 03/23/2024 177.8 cm 30.1 kg/m2 58805.4 g CYNDI BLANCO [facility] 03/23/2024 08:49:11 Social History None recorded. Functional Status None recorded. Mental Status None recorded. Family History Nothing Reported. Medical History Condition Response Arthritis Y Past Encounters Encounter ID Performer Location Encounter Start Date Encounter Closed Date Diagnosis/Indication Diagnosis SNOMED-CT Code Diagnosis ICD10 Code Diagnosis Note [id number] Katina Pierce PA-C [facility] [address] [place] [address] 09/21/2023 08:20:02 10/12/2023 11:20:59 Localized, primary osteoarthritis of the ankle and/or foot 326729843 M19.351 [id number] Katina Pierce PA-C [facility] [address] [place] [address] 12/21/2023 08:23:02 01/07/2024 12:40:25 Localized, primary osteoarthritis of the ankle and/or foot 352784277 M19.522 [id number] Verna Mendoza PA-C [facility] [address] [place] [address] 03/23/2024 08:40:05 04/10/2024 16:34:28 Ankle pain 142301404 M25.348 [id number] Katina Pierce PA-C [facility] [address] [place] [address] 06/23/2024 08:11:34 07/04/2024 13:59:53 Localized, primary osteoarthritis of the ankle and/or foot 576611881 M19.942 [id number] Katina Pierce PA-C [facility] [address] [place] [address] 09/19/2024 08:19:47 09/26/2024 15:48:21 Localized, primary osteoarthritis of the ankle and/or foot 231417163 M19.140 [id number] MD [facility] [address] [place] [address] 09/29/2024 09:08:22 10/10/2024 14:49:53 Pain of right shoulder joint 8423870963 9496170 M25.511 Health Concerns Section Related Observation LastModified by Organization Detai ls LastModified Time None Recorded Concern Status LastModified by Organization Details LastModified Time None Recorded Advance Directives Directive None Recorded Payers Insurance Date Sequence Insurance Name Policy Number Policy Tripp Covered Member ID Tripp Member ID Guarantor Name 10/10/2024 2 [place] [id number] Alberto Valencia [id number] Alberto Valencia 09/25/2024 2 AARP (MEDICARE SUPPLEMENT) Alberto Valencia [id number] Alberto Valencia 09/28/2024 1 [place] Alberto Valencia [id number] Alberto Valenica 03/20/2024 2 [employer] (MEDICARE SUPPLEMENT) Alberto Valencia
--- OUTSIDE RECORDS SUMMARY | 2024-12-26 10:42 | XMS_ITS | Clinical Summary ---
Author Organization [facility] Address [address] [place] [address] Care Team Providers Care Explosives Operator Name Role Phone Vimal Bob MD Primary Care Provider [phone] Allergies No known active allergies Medications acetaminophen [...] age to complete this topic Insurance Medicare [facility] Care Teams Explosives Operator Relationship Specialty Start Date End Date Vimal Bob MD [address] PCP - General 04/04/19
== END 2024-12-26 10:57 | disposition home or self-care (01) ==
LOC: HO.HUSH 09:59
PROVIDERS: PCP Internal Medicine; Visit Provider Urology
DX: R97.20 Elevated prostate specific antigen [PSA] (principal); E11.69 Type 2 diabetes mellitus with other specified complication; N52.1 Erectile dysfunction due to diseases classified elsewhere; N40.1 Benign prostatic hyperplasia with lower urinary tract symptoms; N13.8 Other obstructive and reflux uropathy
CPT/HCPCS: 99213; G2211

== ENCOUNTER 2025-04-13 09:01 | Outpatient (REF) | payer MEDICARE, SELFPAY ==
--- OUTSIDE RECORDS SUMMARY | 2025-04-13 09:31 | XMS_ITS | Clinical Summary ---
Author Organization [facility] Address [address] [place] [address] Care Team Providers Care Utilization Specialist Name Role Phone Vimal Bob MD Primary Care Provider [phone] Social History Tobacco Use Types Packs/Day Years [...] age to complete this topic Care Teams Utilization Specialist Relationship Specialty Start Date End Date Vimal Bob MD [address] [address] PCP - General Automotive Service Writer 03/15/19
--- OUTSIDE RECORDS SUMMARY | 2025-04-13 09:31 | XMS_ITS | Clinical Summary ---
Author Organization [facility] it Address [address] [place] [address] Care Team Providers Care Vice President Consulting Services Name Role Phone Vimal Felipe MD Primary Care Provider [phone] Encounters Date Type Department Care Team Description 03/15/2025 Telephone Gastroenterology - [address] [phone] Félix Villasenor MD from Last 3 Months Social History Tobacco Use Types Packs/Day Years Used Date Smoking Tobacco: Never Assessed Sex and Gender Information Value Date Recorded Sex Assigned at Not on file Legal Sex Male 11:28 AM EST Gender Identity Not on file Sexual Orientation Not on file Plan of Treatment Upcoming Encounters Date Type Department Care Team (Late st Contact Info) Description 10/03/2025 2:20 PM EDT Office Visit Gastroenterology - [address] [phone] Lis Coyne PA [address] [place] [id number] Health Maintenance Due Date Last Done Comments Colorectal Cancer Screening: Colonoscopy 1950 DTaP,Tdap,and Td Vaccines (1 - Tdap) 1969 Pneumococcal Vaccine: 50+ Ye ars (1 of 1 - PCV) 2000 Zoster Vaccines (1 of 2) 2000 Abdominal Aortic Aneurysm (A AA) Screen 04/28/2022 Cholesterol Screening (Lipid Panel) 04/28/2022 Falls Risk Assessment 04/28/2022 Hepatitis C Screening 04/28/2022 Medicare Annual Wellness Visit 04/28/2022 Social Influencers of Health Screening 04/28/2022 Depression Screening 05/31/2024 COVID-19 Vaccine (1 - 2024-2 6 season) 2025 Influenza Vaccine (#1) 2025 RSV Immunization Adult [...] age to complete this topic Insurance MEDICARE [facility] Care Teams Vice President Consulting Services Relationship Specialty Start Date End Date Vimal Felipe MD [address] [place] [address] PCP - General Postal Supervisor 03/15/19
== END 2025-04-13 09:02 | disposition home or self-care (01) ==
LOC: HO.BBR 09:01
PROVIDERS: PCP Internal Medicine; Visit Provider Internal Medicine Gastroenterology
DX: Z13.89 Encounter for screening for other disorder (principal)